=== PATIENT | male | born 1970 | race Two or more races ===

== ENCOUNTER → 2024-04-19 | Outpatient (CLI) | payer OTHER, SELFPAY ==
[2024-04-19 17:34] LABS: D-Dimer < 250 ng/mL (<600)
== END | disposition home or self-care (01) ==
LOC: COPL 16:54
PROVIDERS: Referring Provider Family Medicine; Visit Provider Family Medicine
DX: I83.12 Varicose veins of left lower extremity with inflammation (principal)
CPT/HCPCS: 36415; 85379

== ENCOUNTER 2024-12-03 09:10 | Day surgery (SDC) | payer BC, SELFPAY ==
[2024-12-02 13:49] VITALS: BMI 31.8
[2024-12-03] VITALS (9 sets, daily range): BP systolic 118–142; BP diastolic 71–96; PULSE 67–75; RESP 12–18; TEMP 36.2–36.6; O2SAT 94–98; BMI 33.0
[2024-12-03] MEDS: SODIUM CHLORIDE 0.9% 500 ML 500 ML 20 ML IV (10:19)
[2024-12-03] MEDS: fentaNYL CIT INJ 50 mCg/ML AMP 2ML (ASD USE ONLY) IVP (10:25)
[2024-12-03] MEDS: MIDAZOLAM INJ 1 MG/ML VIAL 2 ML (ASD USE ONLY) 2 MG IVP (10:25)
--- NOTE | 2024-12-03 10:35 | SUR.PHASEII ---
1035: pt received from OR via [employer]. received report from MARTA Alvarez. pt sleeping but arousable easily when called his name. no s/s of resp. distress or discomfort. no s/s of pain or discomfort.
--- NOTE | 2024-12-03 10:56 | SUR.PHASEII ---
1056: pt able to drink water without any difficulty.
--- NOTE | 2024-12-03 11:05 | SUR.PHASEII ---
1105: pt discharge to home via wheelchair. pt alert and oriented. no s/s of resp. distress or discomfort. no s/s of pain of discomfort. discharge instructions given to son and pt, verbalizes understanding. all belongings brought given back to patient.
== END 2024-12-03 11:05 | disposition home or self-care (01) ==
PROVIDERS: PCP Internal Medicine; Referring Provider Specialist; Visit Provider Specialist
PROC: 0DBE8ZX Excision of Large Intestine, Via Natural or Artificial Opening Endoscopic, Diagnostic (ICD-10-PCS; CPT 45380; principal; 2024-12-03 09:30)
DX: Z12.11 Encounter for screening for malignant neoplasm of colon (principal); D12.4 Benign neoplasm of descending colon; K64.9 Unspecified hemorrhoids
CPT/HCPCS: 45380; A4217; A4649; J1200; J2250; J3010; J7999